=== PATIENT | male | born 1965 | race Caucasian/White ===

== ENCOUNTER 2021-12-01 19:30 | Emergency (ER) | payer SELFPAY ==
[~2021-12-01] VITALS: Ht 180.3 cm; Wt 94.0 kg
== END 2021-12-02 | disposition short-term general hospital (02) ==
LOC: ED 19:30
DX: I62.9 Nontraumatic intracranial hemorrhage, unspecified (principal); G40.909 Epilepsy, unspecified, not intractable, without status epilepticus; Z20.822 Contact with and (suspected) exposure to COVID-19
CPT/HCPCS: 31500; 36415; 36556; 36600; 51702; 70450; 71045; 80053; 81001; 82803; 83605; 83735; 85025; 85610; 85730; 87040; 87502; 94002; 94799; 99285-25; C9803; G0480; J0696; J1953; J2060; J2250; J2704; J3411; J7060; J7131; U0003